=== PATIENT | male | born 1960 | race Caucasian/White ===

== ENCOUNTER 2019-01-05 17:44 | Emergency (ER) | payer MEDICAID ==
[~2019-01-05] VITALS: Ht 167.6 cm; Wt 65.9 kg
[~2019-01-05 17:44] MED LIST: HYDR-3965 PO; PENI500T2 PO
[2019-01-05] MEDS ORDERED: metroNIDAZOLE 500mg tablet PO ONE (18:50)
[2019-01-05] MEDS ORDERED: CefTRIAXone 250MG IM Kit w/LIDOcaine IM ONE (18:50)
[2019-01-05] MEDS ORDERED: azithromycin 250mg tablet PO ONE (18:50)
[2019-01-05 19:14] LABS: BASOPHILS # (AUTO) 0.1 X10'3 (0-0.2); BASOPHILS % (AUTO) 0.5 % (0-1); EOSINOPHILS # (AUTO) 0.1 X10'3 (0-0.9); EOSINOPHILS % (AUTO) 0.4 % (0-6); HEMATOCRIT 33.9 % (42.0-52.0); HEMOGLOBIN 11.5 g/dl (14.0-17.9); LYMPHOCYTES # (AUTO) 1.8 X10'3 (1.1-4.8); LYMPHOCYTES % (AUTO) 7.6 % (21-51); MEAN CORPUSCULAR HEMOGLOBIN 31.4 PG (27.0-31.0); MEAN CORPUSCULAR HGB CONC 33.8 g/dL (33.0-36.5); MEAN PLATELET VOLUME 6.6 FL (7.4-10.4); MONOCYTES # (AUTO) 1.3 X10'3 (0-0.9); MONOCYTES % (AUTO) 5.4 % (2-12); NEUTROPHILS % (AUTO) 86.1 % (42-75); PLATELET COUNT 346 X10'3 (140-440); RED BLOOD COUNT 3.65 X10'6 (4.70-6.10); WHITE BLOOD COUNT 23.3 X10'3 (4.5-11.0)
[2019-01-05] MEDS ORDERED: normal saline 1000ML IV soln IV ONE (19:30)
[2019-01-05 19:31] LABS: ALANINE AMINOTRANSFERASE 51 U/L (12-78); ALBUMIN 2.6 G/DL (3.4-5.0); ALBUMIN/GLOBULIN RATIO 0.6 (1.1-1.5); ALKALINE PHOSPHATASE 142 IU/L (46-116); ANION GAP 7 (8-16); ASPARTATE AMINO TRANSFERASE 30 U/L (10-37); BILIRUBIN,TOTAL 0.4 MG/DL (0.1-1.0); BLOOD UREA NITROGEN 15 MG/DL (7-18); BUN/CREATININE RATIO 17.6 (5.4-32.0); CALCIUM 8.4 MG/DL (8.5-10.1); CHLORIDE 98 MMOL/L (99-107); CREATININE 0.85 MG/DL (0.60-1.10); GLUCOSE 161 MG/DL (70-104); SODIUM 133 MMOL/L (135-145); TOTAL CARBON DIOXIDE 27.6 MMOL/L (24-32); TOTAL PROTEIN 7.3 G/DL (6.4-8.2); eGFR > 90 ML/MIN
[2019-01-05 19:48] LABS: CLARITY,URINE CLOUDY (Clear); COLOR,URINE YELLOW (Yellow); GLUCOSE, URINE NEGATIVE (Neg); KETONES,URINE TRACE mg/dl (Neg); LEUKOCYTE ESTERASE ,URINE LARGE (Neg); NITRITES, URINE NEGATIVE (Neg); OCCULT BLOOD,URINE LARGE (Neg); PROTEIN,URINE 30 mg/dl (Neg)
[2019-01-05 19:50] LABS: UA COLLECTION TYPE NON-SPECIFIED
[2019-01-05 19:53] LABS: RBC,URINE 0-2 /HPF (0-2); WBC,URINE 50-100 /HPF (0-4)
[2019-01-05 19:54] LABS: BACTERIA,URINE NONE SEEN /HPF (Neg); MUCUS STRANDS NONE SEEN /LPF (Neg); SQUAMOUS EPITHELIAL CELL,UR NONE SEEN /LPF (FEW); TRANSITIONAL EPI CELLS,URINE FEW /HPF
[2019-01-05] MEDS ORDERED: DOXY-243 PO (20:59)
[2019-01-05 21:37] VITALS: BP 104/58
== END 2019-01-05 21:38 | disposition home or self-care (01) ==
LOC: ER 17:45
DX: N45.1 Epididymitis (principal); A64 Unspecified sexually transmitted disease; F12.90 Cannabis use, unspecified, uncomplicated; F17.200 Nicotine dependence, unspecified, uncomplicated; Z79.899 Other long term (current) drug therapy
CPT/HCPCS: 36415; 76870; 80053; 81001; 83605; 84145; 85025; 87040; 87088; 87491; 87591; 96372; 99284; J0696; J7030; J7040; J3490

== ENCOUNTER 2021-09-11 18:16 | Emergency (ER) | payer MEDICAID | END 2021-09-11 19:02 | disposition left against medical advice (07) | LOC: ER 18:17 | DX: R22.1 Localized swelling, mass and lump, neck (principal); Z53.21 Procedure and treatment not carried out due to patient leaving prior to being seen by health care provider ==

== ENCOUNTER 2021-09-17 20:23 | Emergency (ER) | payer MEDICAID ==
[~2021-09-17] VITALS: Ht 167.6 cm; Wt 62.3 kg
[2021-09-17 20:54] VITALS: BP 122/82
[2021-09-17 21:57] LABS: EOSINOPHILS # (AUTO) 0.1 X10'3 (0-0.9); MEAN PLATELET VOLUME 6.5 FL (7.4-10.4); RED CELL DISTRIBUTION WIDTH 12.6 % (11.5-14.5)
[2021-09-17 21:58] LABS: BASOPHILS # (AUTO) 0.1 X10'3 (0-0.2); BASOPHILS % (AUTO) 0.9 % (0-1); EOSINOPHILS % (AUTO) 0.9 % (0-6); HEMATOCRIT 37.8 % (42.0-52.0); HEMOGLOBIN 13.1 g/dl (14.0-17.9); LYMPHOCYTES # (AUTO) 1.4 X10'3 (1.1-4.8); LYMPHOCYTES % (AUTO) 11.8 % (21-51); MEAN CORPUSCULAR HEMOGLOBIN 30.3 PG (27.0-31.0); MEAN CORPUSCULAR HGB CONC 34.5 g/dL (33.0-36.5); MEAN CORPUSCULAR VOLUME 87.7 FL (78-98); MONOCYTES # (AUTO) 1.2 X10'3 (0-0.9); MONOCYTES % (AUTO) 10.6 % (2-12); NEUTROPHILS # (AUTO) 8.8 X10'3 (1.8-7.7); NEUTROPHILS % (AUTO) 75.8 % (42-75); PLATELET COUNT 508 X10'3 (140-440); RED BLOOD COUNT 4.32 X10'6 (4.70-6.10); WHITE BLOOD COUNT 11.6 X10'3 (4.5-11.0)
[2021-09-17 22:02] LABS: D-DIMER 1.36 MG/L FEU (0-0.50)
[2021-09-17 22:20] LABS: ALANINE AMINOTRANSFERASE 44 U/L (12-78); ALBUMIN 3.1 G/DL (3.4-5.0); ALBUMIN/GLOBULIN RATIO 0.6 (1.1-1.5); ALKALINE PHOSPHATASE 154 IU/L (46-116); ANION GAP 6 (8-16); ASPARTATE AMINO TRANSFERASE 35 U/L (10-37); BILIRUBIN,TOTAL 0.5 MG/DL (0.1-1.0); BLOOD UREA NITROGEN 19 MG/DL (7-18); C-REACTIVE PROTEIN 3.86 MG/DL (0.0-0.5); CHLORIDE 97 MMOL/L (99-107); CREATININE 0.76 MG/DL (0.60-1.10); GLUCOSE 145 MG/DL (70-104); MAGNESIUM 2.1 MG/DL (1.5-2.4); POTASSIUM 4.3 MMOL/L (3.5-5.1); SODIUM 134 MMOL/L (135-145); TOTAL CARBON DIOXIDE 30.7 MMOL/L (24-32); TOTAL PROTEIN 7.9 G/DL (6.4-8.2); eGFR > 90 ML/MIN
--- NOTE | 2021-09-18 02:00 | NUR ---
NOT IN LOBBY
== END 2021-09-18 02:31 | disposition left against medical advice (07) ==
LOC: ER 20:25
DX: R22.0 Localized swelling, mass and lump, head (principal); F12.90 Cannabis use, unspecified, uncomplicated; Z79.899 Other long term (current) drug therapy
CPT/HCPCS: 36415; 80053; 83605; 83735; 84145; 85025; 85379; 85651; 86140; 87040

== ENCOUNTER 2022-04-16 06:02 | Inpatient (IN) | payer MEDICAID ==
[~2022-04-16] VITALS: Ht 167.6 cm; Wt 69.0 kg
[2022-04-16 08:17] LABS: URINE AMPHETAMINE SCREEN NEGATIVE (Neg); URINE BARBITUATE SCREEN NEGATIVE (Neg); URINE BENZODIAZEPINES SCREEN NEGATIVE (Neg); URINE CANNABINOID SCREEN NEGATIVE (Neg); URINE COCAINE SCREEN NEGATIVE (Neg); URINE METHADONE SCREEN NEGATIVE (Neg); URINE OPIATE SCREEN NEGATIVE (Neg); URINE PHENCYCLIDINE SCREEN NEGATIVE (Neg)
[2022-04-16 08:19] LABS: BASOPHILS % (AUTO) 0.4 % (0-1); EOSINOPHILS % (AUTO) 0.1 % (0-6); HEMATOCRIT 34.5 % (42.0-52.0); HEMOGLOBIN 11.6 g/dl (14.0-17.9); LYMPHOCYTES # (AUTO) 0.9 X10'3 (1.1-4.8); LYMPHOCYTES % (AUTO) 9.4 % (21-51); MEAN CORPUSCULAR HEMOGLOBIN 28.8 PG (27.0-31.0); MEAN CORPUSCULAR HGB CONC 33.7 g/dL (33.0-36.5); MEAN CORPUSCULAR VOLUME 85.4 FL (78-98); MEAN PLATELET VOLUME 7.1 FL (7.4-10.4); MONOCYTES # (AUTO) 0.8 X10'3 (0-0.9); MONOCYTES % (AUTO) 8.7 % (2-12); NEUTROPHILS # (AUTO) 7.6 X10'3 (1.8-7.7); NEUTROPHILS % (AUTO) 81.4 % (42-75); PLATELET COUNT 198 X10'3 (140-440); RED BLOOD COUNT 4.03 X10'6 (4.70-6.10); WHITE BLOOD COUNT 9.3 X10'3 (4.5-11.0)
--- NOTE | 2022-04-16 08:20 | NUR ---
I have reviewed and agree with all interventions, assessments performed and documented by FREDERICK Angela.
[2022-04-16 08:28] LABS: ALANINE AMINOTRANSFERASE 23 U/L (12-78); ALBUMIN/GLOBULIN RATIO 0.7 (1.1-1.5); ALKALINE PHOSPHATASE 128 IU/L (46-116); ANION GAP 8 (8-16); ASPARTATE AMINO TRANSFERASE 54 U/L (10-37); BILIRUBIN,TOTAL 1.3 MG/DL (0.1-1.0); BLOOD UREA NITROGEN 34 MG/DL (7-18); BUN/CREATININE RATIO 33.3 (5.4-32.0); CALCIUM 8.9 MG/DL (8.5-10.1); CHLORIDE 98 MMOL/L (99-107); CREATININE 1.02 MG/DL (0.60-1.10); GLUCOSE 140 MG/DL (70-104); POTASSIUM 3.7 MMOL/L (3.5-5.1); SODIUM 134 MMOL/L (135-145); TOTAL CARBON DIOXIDE 28.4 MMOL/L (24-32); TOTAL PROTEIN 4.9 G/DL (6.4-8.2); eGFR 74 ML/MIN
[2022-04-16 08:32] LABS: CLARITY,URINE CLEAR (Clear); COLOR,URINE YELLOW (Yellow); GLUCOSE, URINE NEGATIVE (Neg); KETONES,URINE TRACE mg/dl (Neg); LEUKOCYTE ESTERASE ,URINE NEGATIVE (Neg); NITRITES, URINE NEGATIVE (Neg); OCCULT BLOOD,URINE MODERATE (Neg); PROTEIN,URINE NEGATIVE (Neg); UROBILINOGEN,URINE 0.2 E.U/dL (0.2-1.0)
--- NOTE | 2022-04-16 08:34 | NUR ---
Patient requesting drug rehab for fentynol addiction, currently living out of his car. Patient arrived via EMS. Patients car is at his cousins house.
[2022-04-16 08:37] LABS: UA COLLECTION TYPE CLN CATCH MIDSTREAM
[2022-04-16 08:38] LABS: MAGNESIUM 2.3 MG/DL (1.5-2.4)
[2022-04-16 08:40] LABS: BACTERIA,URINE 2+ /HPF (Neg); HYALINE CASTS 0-3 /LPF (NEGATIVE); SQUAMOUS EPITHELIAL CELL,UR FEW /LPF (FEW)
[2022-04-16] MEDS ORDERED: multivitamins, therapeutics tablet PO ONE (08:55)
[2022-04-16] MEDS ORDERED: thiamine 100mg/ml 2ml inj. IV ONE (08:55)
[2022-04-16] MEDS ORDERED: normal saline 1000ml 1,000 ML IV ONE (08:55)
[2022-04-16] MEDS ORDERED: iohexol 300mg/ml 100ml inj. ONE (09:10)
--- NOTE | 2022-04-16 09:46 | NUR ---
Met with patient in regards to substance use and to see if patient was interested in resources for treatment options. Patient is interested in medication to help him with addiction. I helped patient make an appt at [facility]. His appt is 04/17/22 at 6:00am. Patient has my card to call me with any questions.
[2022-04-16] MEDS ORDERED: potassium Cl 20 mEq SR tablet PO PRN (12:05)
[2022-04-16] MEDS ORDERED: magnesium 4gm in 100ml NS 100 ML IV PRN (12:05)
[2022-04-16] MEDS ORDERED: potassium Cl 40MEQ/1/2NS 520ml 520 ML IV PRN (12:05)
[2022-04-16] MEDS ORDERED: morphine 2 MG/ML inj. syringe IV PRN (12:05)
[2022-04-16] MEDS ORDERED: magnesium Cl slow-release 64mg tablet PO PRN (12:05)
--- NOTE | 2022-04-16 12:30 | NUR ---
PAGE SENT TO DR GALVAN REGARDING HR 124, BP 83/51.
[2022-04-16] MEDS ORDERED: PERFLUTREN PROTEIN-A MICROSPHR (Optison) 0.22 MG/ML 3ML VIAL IV ONE (12:50)
--- NOTE | 2022-04-16 13:38 | NUR ---
helpdesk technician at bedside at this time.
[2022-04-16] MEDS ORDERED: normal saline 250ml IV soln 250 ML IV ONE (13:40)
[2022-04-16 14:15] VITALS: BP 103/72
[2022-04-16] MEDS ORDERED: NO HOME MEDS (14:28)
[2022-04-16 18:00] VITALS: BP 109/69
--- NOTE | 2022-04-16 18:03 | NUR ---
PAGE SENT PAGER ID: [phone] MESSAGE: [id number], MARY YUNG, PT IS BEGINNING WITHDRAWLS FROM [place]. PT ASKING FOR RELIEF, ALL HE HAS IS MORPHINE 1MG IV Q 4 HR. THANK YOU, KARISSA [id number]
--- NOTE | 2022-04-16 18:22 | NUR ---
Problems reprioritized. Patient report given, questions answered & plan of care reviewed with SARAH, RN.
[2022-04-16] MEDS: morphine 2 MG/ML inj. syringe IV PRN ×2 (18:49→22:02)
[2022-04-16] MEDS: ondansetron/PF 4mg/2ml inj IV PRN (18:49)
[2022-04-16] MEDS: K and/or MAG REPLACEMENT MC SCH (20:00)
[2022-04-16 22:00] VITALS: BP 109/64
[2022-04-16] MEDS: CefTRIAXone 2gm/D5W 50ml BAG 50 ML IV SCH (22:02)
[2022-04-16] MEDS: acetaminophen 325mg tablet PO PRN (23:32)
[2022-04-17] VITALS (11 sets, daily range): BP systolic 85–109; BP diastolic 49–78
[2022-04-17] MEDS: ondansetron/PF 4mg/2ml inj IV PRN ×3 (01:07→19:17)
[2022-04-17] MEDS: morphine 2 MG/ML inj. syringe IV PRN ×7 (01:08→23:57)
--- NOTE | 2022-04-17 05:00 | NUR ---
Pt. is awake alert oriented requesting pain med every 3 hours for abdominal and generalized discomfort. Pt. c/o frequent stool and inability to eat due to frequent stools after eating. Pt. is ST on the monitor. IV in right arm now intact. Takes po fluids sips at a time. Had BM x3 tonight dark tarry stool small amt. Voids per urinal mod amt siddhartha clear. Plan for Rehab when medically cleared.
--- NOTE | 2022-04-17 06:33 | NUR ---
Patient in room PCU 3012. I have received report from SARAH, RN, and had the opportunity to ask questions and assume patient care. PT RESTING COMFORTABLLY, NO S/S OF DISTRESS. WILL CONTINUE TO MONITOR.
[2022-04-17 07:04] LABS: BASOPHILS % (AUTO) 0.4 % (0-1); EOSINOPHILS # (AUTO) 0.1 X10'3 (0-0.9); EOSINOPHILS % (AUTO) 0.8 % (0-6); HEMATOCRIT 33.1 % (42.0-52.0); HEMOGLOBIN 11.1 g/dl (14.0-17.9); LYMPHOCYTES # (AUTO) 0.8 X10'3 (1.1-4.8); LYMPHOCYTES % (AUTO) 8.9 % (21-51); MEAN CORPUSCULAR HEMOGLOBIN 29.5 PG (27.0-31.0); MEAN CORPUSCULAR HGB CONC 33.5 g/dL (33.0-36.5); MEAN PLATELET VOLUME 7.6 FL (7.4-10.4); MONOCYTES # (AUTO) 0.9 X10'3 (0-0.9); MONOCYTES % (AUTO) 10.2 % (2-12); NEUTROPHILS # (AUTO) 7.2 X10'3 (1.8-7.7); NEUTROPHILS % (AUTO) 79.7 % (42-75); PLATELET COUNT 187 X10'3 (140-440); RED BLOOD COUNT 3.76 X10'6 (4.70-6.10); RED CELL DISTRIBUTION WIDTH 17.2 % (11.5-14.5)
[2022-04-17 07:12] LABS: ALBUMIN 1.8 G/DL (3.4-5.0); ANION GAP 7 (8-16); BLOOD UREA NITROGEN 31 MG/DL (7-18); BUN/CREATININE RATIO 31.3 (5.4-32.0); CALCIUM 9.2 MG/DL (8.5-10.1); CHLORIDE 100 MMOL/L (99-107); CREATININE 0.99 MG/DL (0.60-1.10); GLUCOSE 97 MG/DL (70-104); POTASSIUM 3.4 MMOL/L (3.5-5.1); SODIUM 133 MMOL/L (135-145); TOTAL CARBON DIOXIDE 26.1 MMOL/L (24-32); eGFR 76 ML/MIN
[2022-04-17] MEDS: CefTRIAXone 2gm/D5W 50ml BAG 50 ML IV SCH (07:19)
[2022-04-17] MEDS: K and/or MAG REPLACEMENT MC SCH ×2 (08:00→18:43)
[2022-04-17] MEDS: azithromycin/NS 500mg/250ml 250 ML IV SCH (08:32)
[2022-04-17 11:14] LABS: BFSOURCE RIGHT PLEURAL FLD; PLEURAL FLUID PH 7.537 (7.63-7.65)
[2022-04-17 11:49] LABS: GLUCOSE,BODY FLUID 108 MG/DL; LDH,BODY FLUID 138 U/L
[2022-04-17 12:02] LABS: TOTAL PROTEIN,BODY FLUID < 2.0 G/DL
[2022-04-17] MEDS: potassium Cl 20 mEq SR tablet PO PRN ×2 (12:32→17:44)
[2022-04-17 12:40] LABS: BFAPPEAR CLOUDY; LYMPHOCYTES,BODY FLUID 82 %; MONOCYTES,BODY FLUID 10 %; NEUTROPHILS,BODY FLUID 8 %
[2022-04-17 12:51] LABS: BF MESOTHELIAL CELLS MODERATE; BF RBC COUNT 5150 /CU MM; BF WBC COUNT 605 /CU MM (0-1000); BFCOLOR AMBER; BFVOLUME 60 ML
--- NOTE | 2022-04-17 12:51 | NUR ---
PAGE SENT PAGER ID: [phone] MESSAGE: [id number], MARY YUNG, PT'S ORTHOSTATIC BP - BP DROPS FROM 102/70 SUPINE TO 85/53 STANDING NO QUITE 20. THANK YOU, KARISSA Taylor 0420
[2022-04-17] MEDS: normal saline 1000ml 1,000 ML IV SCH ×2 (12:55→22:55)
--- NOTE | 2022-04-17 14:53 | NUR ---
PRESSURE ULCER EDUCATION: DEFINITION: A pressure ulcer is an area of skin that breaks down when you stay in one position too long. The constant pressure against the skin reduces the blood flow to that area and the affected tissue dies. CAUSES: "Being bedridden or in a wheelchair "Fragile skin "Having a chronic condition, such as diabetes or vascular disease "Inability to move certain parts of your body without assistance "Older age "Incontinence of urine or stool SYMPTOMS: "A reddened area that DOES NOT turn white when pressed on - this can be the beginning of a pressure ulcer "A blister, deep sore or a crater - these can be advanced pressure ulcers FIRST AID: "Relieve the pressure on this area "Keep the area clean and dry "Call your primary doctor if you see any of the above symptoms "DO NOT massage the area "DO NOT use a donut shaped or ring shaped pillow- these actually interfere with the blood flow and cause complications PREVENTION: "Check for pressure ulcers everyday "Change position at least every two hours to relieve pressure "Use items that help relieve pressure- pillows, sheepskin, foam padding, and powders. "Keep skin clean and dry "Eat healthy well balanced meals "Exercise daily IF YOU SEE ANY OF THESE SYMPTOMS WHILE IN THE HOSPITAL - TELL YOUR NURSE IMMEDIATELY. IF YOU SEE ANY OF THESE SYMPTOMS WHILE AT HOME OR HAVE ANY QUESTIONS OR CONCERNS ABOUT PRESSURE ULCERS - CALL YOUR PRIMARY DOCTOR IMMEDIATELY. Addendum: 04/17/22 at 1454 by Daisy Akbar LVN Amended: Links added.
--- NOTE | 2022-04-17 18:20 | NUR ---
Problems reprioritized. Patient report given, questions answered & plan of care reviewed with SARAH, RN.
[2022-04-17] MEDS: acetaminophen 325mg tablet PO PRN (19:17)
--- NOTE | 2022-04-18 00:20 | NUR ---
Pt. is awake alert oriented c/o severe abd pain requesting pain relief. Unable to wait for 3 hours. medicated with zofran as needed. IV in left arm infusing well. Pt. able to state events of the day, biopsy and drained the left lung. Voids per urinal dark siddhartha clear mod amt. Small amt of dark brown stool incontinence. Plan for CT of abd and lungs consult senior safety support manager for home placement.
[2022-04-18] MEDS: morphine 2 MG/ML inj. syringe IV PRN ×7 (02:36→21:46)
[2022-04-18] MEDS: ondansetron/PF 4mg/2ml inj IV PRN ×2 (02:36→18:47)
[2022-04-18 03:02] VITALS: BP 107/80
[2022-04-18 06:31] LABS: BASOPHILS # (AUTO) 0.1 X10'3 (0-0.2); BASOPHILS % (AUTO) 0.8 % (0-1); EOSINOPHILS # (AUTO) 0.1 X10'3 (0-0.9); EOSINOPHILS % (AUTO) 1.2 % (0-6); HEMATOCRIT 33.4 % (42.0-52.0); HEMOGLOBIN 11.4 g/dl (14.0-17.9); LYMPHOCYTES # (AUTO) 0.8 X10'3 (1.1-4.8); LYMPHOCYTES % (AUTO) 10.6 % (21-51); MEAN CORPUSCULAR HEMOGLOBIN 29.8 PG (27.0-31.0); MEAN CORPUSCULAR HGB CONC 34.1 g/dL (33.0-36.5); MEAN CORPUSCULAR VOLUME 87.4 FL (78-98); MEAN PLATELET VOLUME 7.3 FL (7.4-10.4); MONOCYTES # (AUTO) 0.7 X10'3 (0-0.9); MONOCYTES % (AUTO) 9.7 % (2-12); NEUTROPHILS % (AUTO) 77.7 % (42-75); PLATELET COUNT 173 X10'3 (140-440); RED BLOOD COUNT 3.83 X10'6 (4.70-6.10); RED CELL DISTRIBUTION WIDTH 17.4 % (11.5-14.5); WHITE BLOOD COUNT 7.7 X10'3 (4.5-11.0)
[2022-04-18 06:32] LABS: ALBUMIN 1.7 G/DL (3.4-5.0); ANION GAP 7 (8-16); BLOOD UREA NITROGEN 31 MG/DL (7-18); BUN/CREATININE RATIO 31.3 (5.4-32.0); CALCIUM 8.7 MG/DL (8.5-10.1); CHLORIDE 101 MMOL/L (99-107); CREATININE 0.99 MG/DL (0.60-1.10); GLUCOSE 105 MG/DL (70-104); POTASSIUM 3.9 MMOL/L (3.5-5.1); SODIUM 133 MMOL/L (135-145); TOTAL CARBON DIOXIDE 25.1 MMOL/L (24-32); eGFR 76 ML/MIN
--- NOTE | 2022-04-18 06:37 | NUR ---
Patient in room PCU 3012. I have received report from SARAH RN, and had the opportunity to ask questions and assume patient care.
[2022-04-18] MEDS: CefTRIAXone 2gm/D5W 50ml BAG 50 ML IV SCH (07:31)
[2022-04-18] MEDS: K and/or MAG REPLACEMENT MC SCH ×2 (08:00→18:31)
[2022-04-18] MEDS: normal saline 1000ml 1,000 ML IV SCH ×2 (08:55→18:47)
[2022-04-18] MEDS: azithromycin/NS 500mg/250ml 250 ML IV SCH (09:22)
[2022-04-18 11:45] VITALS: BP 108/75
--- NOTE | 2022-04-18 15:21 | NUR ---
PAGE SENT PAGER ID: [phone] MESSAGE: [id number], MARY YUNG, CRITICAL LAB, MRSA POSITIVE. THANK YOU, KARISSA Taylor [id number]
[2022-04-18 15:42] VITALS: BP 114/84
--- NOTE | 2022-04-18 17:19 | NUR ---
PT REFUSED ORTHOSTATIC VS AND DAILY WEIGHT. PT DIDN'T WANT TO GET OUT OF BED. PT RELUCTANT TO DO BASIC TASKS FOR HIMSELF, SUCH REPORT SOILED BEDDING OR PUT SUGAR IN HIS TEA.
[2022-04-18 18:00] VITALS: BP 110/75
--- NOTE | 2022-04-18 18:17 | NUR ---
Problems reprioritized. Patient report given, questions answered & plan of care reviewed with SARAH, RN.
--- NOTE | 2022-04-18 18:18 | NUR ---
Problems reprioritized. Patient report given, questions answered & plan of care reviewed with SARAH, RN.
[2022-04-18 22:04] VITALS: BP 115/73
--- NOTE | 2022-04-19 00:15 | NUR ---
Pt. is awake alert oriented able to answer simple questions. Pt. c/o weakness incapacity; inability to help in self care stating this has never happened before. No c/o Chest pain. Pt. is incontinent of stool drk green pasty. C/o arm and abd pain requesting meds every 2-3 hours. Tolerating po fluids, voids per urinal independently yellow clear small amts. IV in left arm intact NS infusing. Plan Anticipate antidiarrheals vs. GI consult.
[2022-04-19] MEDS: morphine 2 MG/ML inj. syringe IV PRN ×9 (00:41→23:49)
[2022-04-19] MEDS: ondansetron/PF 4mg/2ml inj IV PRN (01:01)
[2022-04-19 02:21] VITALS: BP 103/70
[2022-04-19] MEDS: normal saline 1000ml 1,000 ML IV SCH ×2 (05:11→14:55)
[2022-04-19 06:43] LABS: BASOPHILS % (AUTO) 0.7 % (0-1); EOSINOPHILS # (AUTO) 0.1 X10'3 (0-0.9); EOSINOPHILS % (AUTO) 1.5 % (0-6); HEMATOCRIT 33.9 % (42.0-52.0); HEMOGLOBIN 11.5 g/dl (14.0-17.9); LYMPHOCYTES # (AUTO) 0.9 X10'3 (1.1-4.8); LYMPHOCYTES % (AUTO) 11.8 % (21-51); MEAN CORPUSCULAR HEMOGLOBIN 30.3 PG (27.0-31.0); MEAN CORPUSCULAR HGB CONC 33.8 g/dL (33.0-36.5); MEAN CORPUSCULAR VOLUME 89.7 FL (78-98); MEAN PLATELET VOLUME 7.2 FL (7.4-10.4); MONOCYTES # (AUTO) 0.7 X10'3 (0-0.9); MONOCYTES % (AUTO) 9.9 % (2-12); NEUTROPHILS # (AUTO) 5.7 X10'3 (1.8-7.7); NEUTROPHILS % (AUTO) 76.1 % (42-75); PLATELET COUNT 163 X10'3 (140-440); RED BLOOD COUNT 3.78 X10'6 (4.70-6.10); RED CELL DISTRIBUTION WIDTH 18.3 % (11.5-14.5); WHITE BLOOD COUNT 7.5 X10'3 (4.5-11.0)
[2022-04-19 07:00] VITALS: BP 92/64
[2022-04-19 07:06] LABS: ALBUMIN 1.6 G/DL (3.4-5.0); ANION GAP 7 (8-16); BLOOD UREA NITROGEN 27 MG/DL (7-18); CALCIUM 8.8 MG/DL (8.5-10.1); CHLORIDE 102 MMOL/L (99-107); CREATININE 0.87 MG/DL (0.60-1.10); GLUCOSE 118 MG/DL (70-104); POTASSIUM 3.9 MMOL/L (3.5-5.1); SODIUM 132 MMOL/L (135-145); TOTAL CARBON DIOXIDE 23.5 MMOL/L (24-32); eGFR 89 ML/MIN
[2022-04-19] MEDS: K and/or MAG REPLACEMENT MC SCH ×2 (08:00→19:47)
[2022-04-19] MEDS: azithromycin/NS 500mg/250ml 250 ML IV SCH (08:55)
[2022-04-19] MEDS: CefTRIAXone 2gm/D5W 50ml BAG 50 ML IV SCH (08:55)
[2022-04-19 11:47] VITALS: BP 93/61
[2022-04-19 15:48] VITALS: BP 100/62
[2022-04-19 18:00] VITALS: BP 92/59
[2022-04-19 23:30] VITALS: BP 108/79
[2022-04-20] MEDS: normal saline 1000ml 1,000 ML IV SCH ×3 (00:55→20:55)
[2022-04-20 02:00] VITALS: BP 112/75
[2022-04-20] MEDS: morphine 2 MG/ML inj. syringe IV PRN ×8 (02:05→23:57)
[2022-04-20] MEDS ORDERED: morphine 4 MG/ML inj SYRINge IV ONE (04:20)
[2022-04-20] MEDS: ondansetron/PF 4mg/2ml inj IV PRN (04:22)
[2022-04-20 06:33] LABS: BASOPHILS # (AUTO) 0.1 X10'3 (0-0.2); EOSINOPHILS # (AUTO) 0.1 X10'3 (0-0.9); EOSINOPHILS % (AUTO) 0.6 % (0-6); HEMATOCRIT 35.3 % (42.0-52.0); HEMOGLOBIN 12.2 g/dl (14.0-17.9); LYMPHOCYTES % (AUTO) 9.5 % (21-51); MEAN CORPUSCULAR HEMOGLOBIN 30.3 PG (27.0-31.0); MEAN CORPUSCULAR HGB CONC 34.5 g/dL (33.0-36.5); MEAN CORPUSCULAR VOLUME 87.9 FL (78-98); MEAN PLATELET VOLUME 7.3 FL (7.4-10.4); MONOCYTES # (AUTO) 0.9 X10'3 (0-0.9); MONOCYTES % (AUTO) 9.3 % (2-12); NEUTROPHILS # (AUTO) 8.2 X10'3 (1.8-7.7); NEUTROPHILS % (AUTO) 79.6 % (42-75); PLATELET COUNT 176 X10'3 (140-440); RED BLOOD COUNT 4.01 X10'6 (4.70-6.10); RED CELL DISTRIBUTION WIDTH 18.2 % (11.5-14.5); WHITE BLOOD COUNT 10.2 X10'3 (4.5-11.0)
[2022-04-20 06:49] LABS: ALBUMIN 1.6 G/DL (3.4-5.0); ANION GAP 7 (8-16); BLOOD UREA NITROGEN 25 MG/DL (7-18); BUN/CREATININE RATIO 29.1 (5.4-32.0); CALCIUM 8.8 MG/DL (8.5-10.1); CHLORIDE 102 MMOL/L (99-107); CREATININE 0.86 MG/DL (0.60-1.10); GLUCOSE 127 MG/DL (70-104); POTASSIUM 3.9 MMOL/L (3.5-5.1); SODIUM 132 MMOL/L (135-145); TOTAL CARBON DIOXIDE 22.6 MMOL/L (24-32); eGFR 90 ML/MIN
[2022-04-20 07:00] VITALS: BP 95/61
[2022-04-20] MEDS: CefTRIAXone 2gm/D5W 50ml BAG 50 ML IV SCH (07:56)
[2022-04-20] MEDS: azithromycin 250mg tablet PO SCH (07:56)
[2022-04-20] MEDS: K and/or MAG REPLACEMENT MC SCH ×2 (08:00→19:01)
--- NOTE | 2022-04-20 08:34 | NUR ---
PAGER ID: [phone] MESSAGE: KAYLEN ON [phone], PATHOLOGY REPORT NOT AVAILABLE YET PER [facility] FOR 3012C. POSSIBLY 04/21/22
[2022-04-20 11:19] VITALS: BP 92/63
--- NOTE | 2022-04-20 12:01 | NUR ---
Malnutrition Consult: Pt admit DX hyponatremia, R pleural effusion, lymphadenopathy, probable PNA, hepatosplenomegaly, suspicion for lung CA pending biopsy results, and orthostatic hypotension per EMR. Pt s/p R thoracentesis -750ml 04/17 per EMR. Noted current bed scaled wt +5.6kg from initial standing scaled wt w/ +1.7L fluid balance; likely error and initial 63.2kg wt more accurate. Pt PO ~39% avg initial heart healthy meals not meeting needs. Pt seen by SKYE at bedside; pt reports decreased appetite and poor food resources past 2-3 months since becoming homeless. Per pt, UBW 155 pounds 2-3 months prior w/ first standing scaled wt this admit 139 pounds; ~10% UBW loss severe. Pt w/ general 4+/L hand 3+ edemas though L deltoid/upper arm visible severe muscle/fat wasting evident and mild temporal wasting. Given visible wasting and wt loss meets severe malnutrition criteria; notified. MD agreeable to liberalize to regular diet today given poor nutrition status. Pt is agreeable to strawberry/vanilla Ensure Plus High Protein TIDWM; MD notified. LBM 04/19. Will monitor for further nutrition intervention needs this admit. Rec: 1. continue regular diet; encourage PO 2. vanilla/strawberry Ensure Plus High Protein TIDWM; pending physician verification in EMR 3. routine bowel care 4. weekly wts Addendum: 04/20/22 at [address] Amended: Links added.
[2022-04-20] MEDS: LACTOSE-REDUCED FOOD 237ML LIQUID PO SCH ×2 (13:00→18:00)
[2022-04-20 15:31] VITALS: BP 100/66
[2022-04-20 22:00] VITALS: BP 98/63
[2022-04-21] VITALS (7 sets, daily range): BP systolic 81–116; BP diastolic 56–80
[2022-04-21] MEDS: morphine 2 MG/ML inj. syringe IV PRN ×4 (03:17→14:05)
[2022-04-21] MEDS: normal saline 1000ml 1,000 ML IV SCH (05:39)
[2022-04-21] MEDS: LACTOSE-REDUCED FOOD 237ML LIQUID PO SCH ×3 (08:00→18:31)
[2022-04-21] MEDS: K and/or MAG REPLACEMENT MC SCH ×2 (08:00→20:00)
[2022-04-21] MEDS: CefTRIAXone 2gm/D5W 50ml BAG 50 ML IV SCH (09:00)
[2022-04-21] MEDS: azithromycin 250mg tablet PO SCH (09:00)
--- NOTE | 2022-04-21 12:21 | NUR ---
PAGER ID: [phone] MESSAGE: Gurjit [phone], Pt has been desating more today. Was on 4L NC now with mask on at 10L still satting at 82-85. Lungs sound clear and diminished. Maybe we need an X-ray or check for PE's. Nikolas [phone]
[2022-04-21] MEDS ORDERED: furosemide 40mg/4ml inj IV ONE (12:40)
--- NOTE | 2022-04-21 12:58 | NUR ---
PAGER ID: [phone] MESSAGE: KAYLEN ON [phone], WE CALLED A RAPID ON 3012C, ABG IS DRAWN BUT PENDING RESULTS NOW. CAN YOU COME BACK TO PATIENTS ROOM PLEASE, THANK YOU
[2022-04-21 12:59] LABS: ABG BASE EXCESS -3.9 mmol/L (-2.0-2.0); ABG HCO3 20.7 mmol/L (22.0-26.0); ABG OXYGEN SATURATION 85.4 % (94-97); ABG PCO2 (T) 35.2 mmHg (35.0-48.0); ABG PO2 (T) 50.7 mmHg (75.0-100.0); ALLEN'S TEST POSITIVE; FLOW 15 L/min; FMetHb 0.4 % (0.0-1.5); FO2Hb 84.2 % (94-97); PATIENT TEMPERATURE 36.3; TOTAL HEMOGLOBIN 14.3 G/dl (14.0-17.9)
[2022-04-21] MEDS: heparin, porcine 5000 units/ml vial SQ SCH ×2 (13:05→20:12)
[2022-04-21 13:07] LABS: BASOPHILS # (AUTO) 0.1 X10'3 (0-0.2); BASOPHILS % (AUTO) 0.5 % (0-1); EOSINOPHILS # (AUTO) 0.1 X10'3 (0-0.9); EOSINOPHILS % (AUTO) 0.4 % (0-6); HEMATOCRIT 42.3 % (42.0-52.0); HEMOGLOBIN 13.7 g/dl (14.0-17.9); LYMPHOCYTES # (AUTO) 1.8 X10'3 (1.1-4.8); MEAN CORPUSCULAR HEMOGLOBIN 28.7 PG (27.0-31.0); MEAN CORPUSCULAR HGB CONC 32.4 g/dL (33.0-36.5); MEAN CORPUSCULAR VOLUME 88.4 FL (78-98); MEAN PLATELET VOLUME 7.6 FL (7.4-10.4); MONOCYTES # (AUTO) 1.2 X10'3 (0-0.9); MONOCYTES % (AUTO) 7.6 % (2-12); NEUTROPHILS # (AUTO) 12.9 X10'3 (1.8-7.7); NEUTROPHILS % (AUTO) 80.5 % (42-75); PLATELET COUNT 196 X10'3 (140-440); RED BLOOD COUNT 4.79 X10'6 (4.70-6.10); WHITE BLOOD COUNT 16.1 X10'3 (4.5-11.0)
[2022-04-21] MEDS ORDERED: metoprolol tartrate 12.5mg (1/2 tablet) PO SCH (13:10)
[2022-04-21 13:17] LABS: D-DIMER 2.77 MG/L FEU (0-0.50)
[2022-04-21 13:23] LABS: ALANINE AMINOTRANSFERASE 26 U/L (12-78); ALBUMIN 1.8 G/DL (3.4-5.0); ALBUMIN/GLOBULIN RATIO 0.5 (1.1-1.5); ALKALINE PHOSPHATASE 148 IU/L (46-116); ANION GAP 9 (8-16); ASPARTATE AMINO TRANSFERASE 59 U/L (10-37); BILIRUBIN,TOTAL 0.7 MG/DL (0.1-1.0); BLOOD UREA NITROGEN 27 MG/DL (7-18); CALCIUM 9.1 MG/DL (8.5-10.1); CHLORIDE 101 MMOL/L (99-107); CREATININE 0.87 MG/DL (0.60-1.10); GLUCOSE 171 MG/DL (70-104); SODIUM 132 MMOL/L (135-145); TOTAL CARBON DIOXIDE 22.4 MMOL/L (24-32); TOTAL PROTEIN 5.2 G/DL (6.4-8.2); eGFR 89 ML/MIN
--- NOTE | 2022-04-21 13:53 | NUR ---
PAGER ID: [phone] MESSAGE: Gurjit [phone], Can we get an order for morphine 1mg to help with pt's O2 hunger? RT is worried the 2mg may reduce breathing drive. Nikolas [phone]
[2022-04-21] MEDS ORDERED: levalbuterol 0.63mg/3ml nebule IH SCH (14:10)
[2022-04-21] MEDS ORDERED: iohexol 350MG/ML 100ml bottle IV ONE (14:46)
[2022-04-21 15:05] LABS: POTASSIUM 4.4 MMOL/L (3.5-5.1)
[2022-04-21 15:22] LABS: ABG BASE EXCESS -4.2 mmol/L (-2.0-2.0); ABG HCO3 20.2 mmol/L (22.0-26.0); ABG OXYGEN SATURATION 94.6 % (94-97); ABG PCO2 (T) 35.5 mmHg (35.0-48.0); ABG PO2 (T) 77.5 mmHg (75.0-100.0); ALLEN'S TEST POSITIVE; FCOHb 0.6 % (0.0-3.9); FLOW 30 L/min; FMetHb 0.4 % (0.0-1.5); FO2Hb 93.7 % (94-97); TOTAL HEMOGLOBIN 13.8 G/dl (14.0-17.9)
--- NOTE | 2022-04-21 16:40 | NUR ---
PAGER ID: [phone] MESSAGE: Gurjit [phone], pt has been running [employer] in the 170's with a BP of 135/65. I gave the metoprolol PO, can we get an IV one time push? Nikolas [phone]
--- NOTE | 2022-04-21 16:40 | NUR ---
Pt has been moved to DNR as per conversation with Dr Bryan, RT, and myself.
[2022-04-21] MEDS ORDERED: metoprolol tartrate 1mg/ml inj IV ONE (16:47)
--- NOTE | 2022-04-21 16:48 | NUR ---
Called pt's family to notify of current condition and change to DNR status. Contact ken - [phone]
[2022-04-21] MEDS ORDERED: diltiazem-NS 100mg/100ml 100 ML IV SCH (17:25)
--- NOTE | 2022-04-21 18:20 | NUR ---
Patient in room PCU 3012. I have received report from DELICIA Connor and had the opportunity to ask questions and assume patient care. Patient has been made a DNR, but not comfort care. A rapid was called today as his SpO2 was in the low 80's, RT worked with nursing and he is now on high flow 15L and a non-rebreather mask at 15L. he is sating in the high 80's to low 90's. His HR was also up into the 130's so a Cardizem gtt has been ordered.
[2022-04-21] MEDS ORDERED: furosemide 20 MG/2 ML vial IV SCH (20:00)
[2022-04-21] MEDS: furosemide 40mg/4ml inj IV SCH (20:00)
--- NOTE | 2022-04-21 22:17 | NUR ---
Patient resistive to care, only wants to lay on right side. Is not diligent with keeping oxygen on and is refusing blood draws. Is incontinent of urine, does not bother with urinal anymore. I will request a Castro
--- NOTE | 2022-04-21 22:24 | NUR ---
Per Dr. Favian watters to place Castro Cath.
[2022-04-22] VITALS (11 sets, daily range): BP systolic 75–107; BP diastolic 49–75
--- NOTE | 2022-04-22 00:09 | NUR ---
Patient's son cld and he gave me permission to talk with him about his medical condition. I updated the son and he told me he is in the [place] and is going to try to come home. He took the hospital phone number and advised me the [facility] will be calling as that is the route he goes through to take leave.
[2022-04-22] MEDS: morphine 2 MG/ML inj. syringe IV PRN ×3 (04:04→16:41)
--- NOTE | 2022-04-22 06:39 | NUR ---
Problems reprioritized. Patient report given, questions answered & plan of care reviewed with DELICIA Watts.
--- NOTE | 2022-04-22 07:50 | NUR ---
"MORNING, DR. NOBLE, JULY WE HAVE AN ORDR FOR PICC LINE FOR PT YUNG, ROOM 3012 C, PLEASE. HIS ARMS VERY SWOLLEN. THANK YOU WILMA VELÁZQUEZ"
[2022-04-22] MEDS: LACTOSE-REDUCED FOOD 237ML LIQUID PO SCH ×3 (08:00→18:05)
[2022-04-22] MEDS: furosemide 40mg/4ml inj IV SCH ×2 (08:00→20:15)
[2022-04-22] MEDS: CefTRIAXone 2gm/D5W 50ml BAG 50 ML IV SCH (08:00)
[2022-04-22] MEDS: K and/or MAG REPLACEMENT MC SCH ×2 (08:00→18:27)
--- NOTE | 2022-04-22 08:07 | NUR ---
"ANDERS DOCKERY BP HAS BEEN CONSISTENTLY LOW IN HIGH 70'S. DO YOU WANT TO CONTINUE PARK CHASE? THANK YOU"
[2022-04-22 09:27] LABS: BASOPHILS % (AUTO) 0.1 % (0-1); EOSINOPHILS % (AUTO) 0.2 % (0-6); HEMOGLOBIN 11.8 g/dl (14.0-17.9); LYMPHOCYTES # (AUTO) 1.1 X10'3 (1.1-4.8); LYMPHOCYTES % (AUTO) 8.4 % (21-51); MEAN CORPUSCULAR VOLUME 90.8 FL (78-98); MEAN PLATELET VOLUME 7.4 FL (7.4-10.4); MONOCYTES # (AUTO) 0.8 X10'3 (0-0.9); MONOCYTES % (AUTO) 6.3 % (2-12); NEUTROPHILS # (AUTO) 10.7 X10'3 (1.8-7.7); PLATELET COUNT 160 X10'3 (140-440); RED BLOOD COUNT 4.07 X10'6 (4.70-6.10); RED CELL DISTRIBUTION WIDTH 20.8 % (11.5-14.5); WHITE BLOOD COUNT 12.6 X10'3 (4.5-11.0)
[2022-04-22 09:38] LABS: ALANINE AMINOTRANSFERASE 25 U/L (12-78); ALBUMIN 1.4 G/DL (3.4-5.0); ALBUMIN/GLOBULIN RATIO 0.5 (1.1-1.5); ALKALINE PHOSPHATASE 122 IU/L (46-116); ANION GAP 10 (8-16); ASPARTATE AMINO TRANSFERASE 47 U/L (10-37); BILIRUBIN,TOTAL 0.6 MG/DL (0.1-1.0); BLOOD UREA NITROGEN 31 MG/DL (7-18); BUN/CREATININE RATIO 40.3 (5.4-32.0); CALCIUM 8.9 MG/DL (8.5-10.1); CHLORIDE 103 MMOL/L (99-107); CREATININE 0.77 MG/DL (0.60-1.10); GLUCOSE 166 MG/DL (70-104); MAGNESIUM 2.1 MG/DL (1.5-2.4); PHOSPHORUS 3.5 MG/DL (2.3-4.5); SODIUM 134 MMOL/L (135-145); TOTAL CARBON DIOXIDE 20.9 MMOL/L (24-32); TOTAL PROTEIN 4.3 G/DL (6.4-8.2); eGFR > 90 ML/MIN
--- NOTE | 2022-04-22 10:03 | NUR ---
"DR. NOBLE, WE NEED AN ORDER FOR MIDLINE FOR PT AGA, ROOM 3012 C SO WE CAN DRAW LABS FROM IT. HIS ARMS VERY SWOLLEN AND UNABLE TO DRAW. PICC LINE NURSE HERE AND WAITING FOR ORDER. THANK YOU MEREDITH VELÁZQUEZU"
[2022-04-22] MEDS: azithromycin/NS 500mg/250ml 250 ML IV SCH (10:58)
[2022-04-22] MEDS: heparin, porcine 5000 units/ml vial SQ SCH ×2 (10:59→20:15)
--- NOTE | 2022-04-22 11:47 | NUR ---
PAGE TO PICC TEAM: "DR. NOBLE ORDERED A MIDLINE FOR PT AGA, ROOM 3012C. THANK YOU MELANIA PCU"
--- NOTE | 2022-04-22 13:21 | NUR ---
"DR. NOBLE, PT AGA ASKING TO ADD PAIN MEDS. HE HAS MORPHINE 1 MG Q 6HR AND TYLENOL 650MG BUT FOR FEVER ONLY. CAN WE ADD SOMETHING FOR HIS PAIN? THANK YOU WILMA VELÁZQUEZ"
[2022-04-22] MEDS: acetaminophen 325mg tablet PO PRN (13:57)
[2022-04-22] MEDS ORDERED: acetaminophen 325mg tablet PO PRN (15:00)
--- NOTE | 2022-04-22 15:01 | NUR ---
"CHEST XRAY ORDER FOR PT AGA, ROOM 3012 C, PLEASE. THANK YOU MEREDITH VELÁZQUEZU"
[2022-04-22] MEDS ORDERED: ipratropium/albuterol 3ml nebule NEB PRN (16:20)
[2022-04-22] MEDS ORDERED: methylPREDNISolone sod succ 125mg/2ml vial IV ONE (16:30)
--- NOTE | 2022-04-22 16:33 | NUR ---
DR. NOBLE DISCUSSED WITH PATIENT THE CODE STATUS. PATIENT VERBALIZED/CONFIRMED THAT HE WANTS TO REMAIN ON DNR STATUS AND DOESN'T WANT TO BE RESUSCITATED OR INTUBATED BECAUSE "IT WILL MAKE ME MORE MISERABLE".
[2022-04-22] MEDS: piperacillin/tazo 3.375gm/50ml 50 ML IV SCH (17:16)
[2022-04-22 17:44] LABS: BFSOURCE PLEURAL FLD
[2022-04-22 18:10] LABS: GLUCOSE,BODY FLUID 173 MG/DL; LDH,BODY FLUID 134 U/L
[2022-04-22 18:35] LABS: TOTAL PROTEIN,BODY FLUID < 2.0 G/DL
[2022-04-22 19:23] LABS: BFAPPEAR CLOUDY; BFCOLOR YELLOW
[2022-04-22 19:24] LABS: BF RBC COUNT 3965 /CU MM; BF WBC COUNT 295 /CU MM (0-1000); BFVOLUME 60 ML; NEUTROPHILS,BODY FLUID 4 %
[2022-04-22 19:25] LABS: LYMPHOCYTES,BODY FLUID 55 %; MONOCYTES,BODY FLUID 41 %
[2022-04-22] MEDS: ipratropium/albuterol 3ml nebule NEB SCH ×2 (19:41→22:29)
[2022-04-22] MEDS: methylPREDNISolone sod succ 125mg/2ml vial IV SCH (20:15)
[2022-04-22] MEDS: HYDROcodone/acetaminophen 5mg/325mg tablet PO PRN (22:02)
[2022-04-23] MEDS: piperacillin/tazo 3.375gm/50ml 50 ML IV SCH ×3 (00:46→16:00)
[2022-04-23 01:57] VITALS: BP 101/64
--- NOTE | 2022-04-23 02:21 | NUR ---
jessica NELSON: Salo Cagle 3012-C. HR sustaining 160-170s, BP 90-106/50-60. Diltiazem gtt DC'd during dayshift. Would you like to restart gtt or give IVP? Imani RN ext [phone]. Orders received.
[2022-04-23] MEDS ORDERED: diltiazem 30mg tablet PO ONE ×2 (02:25→22:30)
[2022-04-23] MEDS: ipratropium/albuterol 3ml nebule NEB SCH ×2 (02:36→07:00)
[2022-04-23] MEDS: morphine 2 MG/ML inj. syringe IV PRN ×2 (02:41→15:06)
[2022-04-23] MEDS: methylPREDNISolone sod succ 125mg/2ml vial IV SCH ×4 (02:42→20:22)
[2022-04-23 07:00] VITALS: BP 98/53
[2022-04-23] MEDS: furosemide 40mg/4ml inj IV SCH ×2 (07:29→20:24)
[2022-04-23] MEDS: azithromycin/NS 500mg/250ml 250 ML IV SCH (07:31)
[2022-04-23] MEDS: heparin, porcine 5000 units/ml vial SQ SCH ×2 (07:32→20:23)
[2022-04-23] MEDS: HYDROcodone/acetaminophen 5mg/325mg tablet PO PRN ×2 (07:33→18:49)
[2022-04-23] MEDS: K and/or MAG REPLACEMENT MC SCH ×2 (07:34→20:00)
[2022-04-23] MEDS: LACTOSE-REDUCED FOOD 237ML LIQUID PO SCH ×3 (07:35→18:02)
[2022-04-23] MEDS ORDERED: iohexol 350MG/ML 100ml bottle IV ONE (08:24)
--- NOTE | 2022-04-23 09:31 | NUR ---
F/u 04/23: Pt PO 0% mostly this admit refusing all Ensure Plus High Protein ONS also not very compliant declining procedures only wants to be comfortable now DNR/DNI s/p rapid response yesterday per EMR. Pt continues to be malnourished though limited nutrition interventions at this time given above. SKYE paged MD regarding cancelling ONS if agreeable since pt refusing all of them. LBM 04/22 small/smears since admit w/ poor PO intake. Will continue to follow. Rec: 1. continue regular diet; encourage PO 2. vanilla/strawberry Ensure Plus High Protein TIDWM; d/c in EMR if MD agreeable as pt refusing all 3. routine bowel care 4. weekly wts 5. monitor for changes in code status Addendum: 04/23/22 at [address] Amended: Links added.
[2022-04-23] MEDS: levalbuterol 0.63mg/3ml nebule IH SCH ×3 (11:30→20:13)
[2022-04-23 13:00] VITALS: BP 93/63
[2022-04-23 14:07] LABS: BASOPHILS # (AUTO) 0.1 X10'3 (0-0.2); BASOPHILS % (AUTO) 0.7 % (0-1); EOSINOPHILS % (AUTO) 0 % (0-6); HEMATOCRIT 34.9 % (42.0-52.0); HEMOGLOBIN 11.6 g/dl (14.0-17.9); LYMPHOCYTES # (AUTO) 0.8 X10'3 (1.1-4.8); MEAN CORPUSCULAR HEMOGLOBIN 29.4 PG (27.0-31.0); MEAN CORPUSCULAR HGB CONC 33.2 g/dL (33.0-36.5); MEAN CORPUSCULAR VOLUME 88.5 FL (78-98); MEAN PLATELET VOLUME 7.7 FL (7.4-10.4); MONOCYTES # (AUTO) 0.5 X10'3 (0-0.9); MONOCYTES % (AUTO) 4.2 % (2-12); NEUTROPHILS # (AUTO) 10.2 X10'3 (1.8-7.7); NEUTROPHILS % (AUTO) 88.1 % (42-75); PLATELET COUNT 211 X10'3 (140-440); RED BLOOD COUNT 3.95 X10'6 (4.70-6.10); RED CELL DISTRIBUTION WIDTH 20.6 % (11.5-14.5); WHITE BLOOD COUNT 11.5 X10'3 (4.5-11.0)
[2022-04-23 14:14] LABS: ALANINE AMINOTRANSFERASE 28 U/L (12-78); ALBUMIN 1.5 G/DL (3.4-5.0); ALBUMIN/GLOBULIN RATIO 0.6 (1.1-1.5); ALKALINE PHOSPHATASE 123 IU/L (46-116); ANION GAP 6 (8-16); ASPARTATE AMINO TRANSFERASE 45 U/L (10-37); BILIRUBIN,TOTAL 0.6 MG/DL (0.1-1.0); BLOOD UREA NITROGEN 39 MG/DL (7-18); BUN/CREATININE RATIO 44.3 (5.4-32.0); CALCIUM 9.1 MG/DL (8.5-10.1); CHLORIDE 101 MMOL/L (99-107); CREATININE 0.88 MG/DL (0.60-1.10); GLUCOSE 223 MG/DL (70-104); MAGNESIUM 2.2 MG/DL (1.5-2.4); POTASSIUM 3.9 MMOL/L (3.5-5.1); SODIUM 133 MMOL/L (135-145); TOTAL CARBON DIOXIDE 26.3 MMOL/L (24-32); TOTAL PROTEIN 4.2 G/DL (6.4-8.2); eGFR 87 ML/MIN
[2022-04-23] MEDS ORDERED: levalbuterol 0.63mg/3ml nebule IH SCH (15:00)
[2022-04-23 22:00] VITALS: BP 89/55
[2022-04-23 22:56] VITALS: BP 97/70
[2022-04-23 23:58] VITALS: BP 92/64
[2022-04-24] VITALS (10 sets, daily range): BP systolic 80–103; BP diastolic 46–69
[2022-04-24] MEDS: piperacillin/tazo 3.375gm/50ml 50 ML IV SCH ×2 (00:53→07:47)
[2022-04-24] MEDS: methylPREDNISolone sod succ 125mg/2ml vial IV SCH ×2 (01:35→07:38)
[2022-04-24] MEDS: levalbuterol 0.63mg/3ml nebule IH SCH ×2 (03:16→08:48)
[2022-04-24 06:21] LABS: BASOPHILS % (AUTO) 0.2 % (0-1); EOSINOPHILS % (AUTO) 0 % (0-6); HEMATOCRIT 34.6 % (42.0-52.0); HEMOGLOBIN 11.5 g/dl (14.0-17.9); LYMPHOCYTES # (AUTO) 0.6 X10'3 (1.1-4.8); LYMPHOCYTES % (AUTO) 4.3 % (21-51); MEAN CORPUSCULAR HEMOGLOBIN 29.2 PG (27.0-31.0); MEAN CORPUSCULAR HGB CONC 33.4 g/dL (33.0-36.5); MEAN CORPUSCULAR VOLUME 87.6 FL (78-98); MEAN PLATELET VOLUME 7.3 FL (7.4-10.4); MONOCYTES # (AUTO) 0.6 X10'3 (0-0.9); MONOCYTES % (AUTO) 4.3 % (2-12); NEUTROPHILS # (AUTO) 13.7 X10'3 (1.8-7.7); NEUTROPHILS % (AUTO) 91.2 % (42-75); PLATELET COUNT 219 X10'3 (140-440); RED BLOOD COUNT 3.95 X10'6 (4.70-6.10); RED CELL DISTRIBUTION WIDTH 20.4 % (11.5-14.5)
--- NOTE | 2022-04-24 06:35 | NUR ---
I received report from DELICIA Parker. Pt did have low BP last night [id number]. Will continue to monitor.
[2022-04-24 06:41] LABS: ALANINE AMINOTRANSFERASE 32 U/L (12-78); ALBUMIN 1.6 G/DL (3.4-5.0); ALBUMIN/GLOBULIN RATIO 0.6 (1.1-1.5); ALKALINE PHOSPHATASE 133 IU/L (46-116); ANION GAP 7 (8-16); ASPARTATE AMINO TRANSFERASE 41 U/L (10-37); BILIRUBIN,TOTAL 0.7 MG/DL (0.1-1.0); BLOOD UREA NITROGEN 43 MG/DL (7-18); BUN/CREATININE RATIO 46.7 (5.4-32.0); CALCIUM 9.1 MG/DL (8.5-10.1); CHLORIDE 97 MMOL/L (99-107); CREATININE 0.92 MG/DL (0.60-1.10); GLUCOSE 290 MG/DL (70-104); MAGNESIUM 2.2 MG/DL (1.5-2.4); POTASSIUM 3.7 MMOL/L (3.5-5.1); SODIUM 130 MMOL/L (135-145); TOTAL CARBON DIOXIDE 25.7 MMOL/L (24-32); TOTAL PROTEIN 4.4 G/DL (6.4-8.2); eGFR 83 ML/MIN
[2022-04-24 07:26] LABS: ANISOCYTOSIS 3+; PLATELET ESTIMATE NORMAL; SCHISTOCYTES FEW
[2022-04-24] MEDS: morphine 2 MG/ML inj. syringe IV PRN ×2 (07:36→13:31)
[2022-04-24] MEDS: heparin, porcine 5000 units/ml vial SQ SCH (07:43)
[2022-04-24] MEDS: furosemide 40mg/4ml inj IV SCH (07:43)
[2022-04-24] MEDS: azithromycin/NS 500mg/250ml 250 ML IV SCH (07:47)
[2022-04-24] MEDS: K and/or MAG REPLACEMENT MC SCH (07:48)
[2022-04-24] MEDS: LACTOSE-REDUCED FOOD 237ML LIQUID PO SCH ×4 (07:50→13:35)
--- NOTE | 2022-04-24 10:10 | NUR ---
MR Cagle was sustained 170's with BP of 82/63 MD leong. Rapid called, I started a boils 250, per rapid order. Pt currently 80/46 with hr of 159. Will continue to monitor
[2022-04-24] MEDS ORDERED: albumin (Human) 5% 250ml 250 ML IV ONE ×2 (11:10→12:25)
[2022-04-24] MEDS: HYDROcodone/acetaminophen 5mg/325mg tablet PO PRN (15:11)
--- NOTE | 2022-04-24 15:52 | NUR ---
Paged Dr Tripp Message: [phone]. Cagle. Family and patient ready for comfort care orders. Thanks [phone] Transaction number: [id number]
[2022-04-24] MEDS ORDERED: morphine ORAL 5MG/0.25 ML (Conc. morphine) oral syringe PO PRN (16:40)
[2022-04-24] MEDS: HYDROmorphone 1 mg/ml syringe IV PRN ×2 (18:35→23:57)
[2022-04-25] MEDS: HYDROmorphone 1 mg/ml syringe IV PRN ×5 (04:53→21:15)
--- NOTE | 2022-04-25 08:29 | NUR ---
Faxed req to dietary for [employer]
--- NOTE | 2022-04-25 15:09 | NUR ---
Family states pt pants are missing (blue jeans) with car keys. This RN went to 12C (old room), no pants, lost and found empty. Called Housekeeping: no pants. Called ED: no pants.
[2022-04-25] MEDS: morphine 10mg/0.5ml (conc. morphine) oral syringe PO PRN ×2 (19:07→23:21)
[2022-04-26] MEDS: HYDROmorphone 1 mg/ml syringe IV PRN ×5 (01:27→20:27)
[2022-04-26] MEDS: morphine 10mg/0.5ml (conc. morphine) oral syringe PO PRN ×4 (03:24→17:24)
--- NOTE | 2022-04-26 10:34 | NUR ---
F/u 04/26: Pt now MORALES w/ comfort care per EMR. LBM 04/23. Will continue to follow. Rec: 1. continue regular diet per MD; honor pt food preferences 2. bowel care per comfort measures Addendum: 04/26/22 at [address] Amended: Links added.
[2022-04-26] MEDS: LORazepam 2 mg/ml vial IV PRN (11:16)
[2022-04-26 18:00] VITALS: BP 105/65
[2022-04-27] MEDS: HYDROmorphone 1 mg/ml syringe IV PRN ×5 (00:27→21:52)
[2022-04-27] MEDS: morphine 10mg/0.5ml (conc. morphine) oral syringe PO PRN ×4 (03:05→19:47)
[2022-04-27] MEDS: LORazepam 2 mg/ml vial IV PRN ×3 (04:03→22:47)
--- NOTE | 2022-04-27 06:31 | NUR ---
Patient in room PCU 3021. I have received report from Manda NESBITT and had the opportunity to ask questions and assume patient care.
--- NOTE | 2022-04-27 15:00 | NUR ---
FREDERICK II documentation: I have reviewed and agree with all interventions, assessments performed and documented by FREDERICK Allison II.
--- NOTE | 2022-04-27 18:21 | NUR ---
Problems reprioritized. Patient report given, questions answered & plan of care reviewed with Eda NESBITT.
--- NOTE | 2022-04-27 18:28 | NUR ---
Patient in room PCU 3021. I have received report from DELICIA LUIS and had the opportunity to ask questions and assume patient care.
[2022-04-27 22:00] VITALS: BP 91/56
[2022-04-28] MEDS: morphine 10mg/0.5ml (conc. morphine) oral syringe PO PRN ×5 (01:38→22:05)
[2022-04-28] MEDS: HYDROmorphone 1 mg/ml syringe IV PRN ×4 (03:40→19:46)
--- NOTE | 2022-04-28 06:18 | NUR ---
Problems reprioritized. Patient report given, questions answered & plan of care reviewed with DELICIA MAR.
--- NOTE | 2022-04-28 06:30 | NUR ---
Pt family has refused AM VS. Will check again later.
--- NOTE | 2022-04-28 11:00 | NUR ---
Family is still refusing VS, will try again later.
[2022-04-28] MEDS: LORazepam 2 mg/ml vial IV PRN ×2 (11:16→22:07)
--- NOTE | 2022-04-28 13:35 | NUR ---
PRESSURE ULCER EDUCATION: DEFINITION: A pressure ulcer is an area of skin that breaks down when you stay in one position too long. The constant pressure against the skin reduces the blood flow to that area and the affected tissue dies. CAUSES: "Being bedridden or in a wheelchair "Fragile skin "Having a chronic condition, such as diabetes or vascular disease "Inability to move certain parts of your body without assistance "Older age "Incontinence of urine or stool SYMPTOMS: "A reddened area that DOES NOT turn white when pressed on - this can be the beginning of a pressure ulcer "A blister, deep sore or a crater - these can be advanced pressure ulcers FIRST AID: "Relieve the pressure on this area "Keep the area clean and dry "Call your primary doctor if you see any of the above symptoms "DO NOT massage the area "DO NOT use a donut shaped or ring shaped pillow- these actually interfere with the blood flow and cause complications PREVENTION: "Check for pressure ulcers everyday "Change position at least every two hours to relieve pressure "Use items that help relieve pressure- pillows, sheepskin, foam padding, and powders. "Keep skin clean and dry "Eat healthy well balanced meals "Exercise daily IF YOU SEE ANY OF THESE SYMPTOMS WHILE IN THE HOSPITAL - TELL YOUR NURSE IMMEDIATELY. IF YOU SEE ANY OF THESE SYMPTOMS WHILE AT HOME OR HAVE ANY QUESTIONS OR CONCERNS ABOUT PRESSURE ULCERS - CALL YOUR PRIMARY DOCTOR IMMEDIATELY. Addendum: 04/28/22 at 1336 by Raquel Tuttle RN Amended: Links added.
[2022-04-28 14:59] VITALS: BP 87/53
[2022-04-29] MEDS: HYDROmorphone 1 mg/ml syringe IV PRN ×5 (00:18→22:59)
[2022-04-29] MEDS: LORazepam 2 mg/ml vial IV PRN ×4 (01:40→16:52)
[2022-04-29] MEDS: morphine 10mg/0.5ml (conc. morphine) oral syringe PO PRN ×3 (07:13→20:16)
--- NOTE | 2022-04-29 18:05 | NUR ---
Patient in room PCU 3021. I have received report from Latoya NESBITT and had the opportunity to ask questions and assume patient care. Pt is laying semi fowlers in bed. Pt on RA. No s/s of pain. No s/s of distress. Family at bedside. BLL, cqll light within reach, frequently used items in reach, frequent rounding, grocery stock clerk socks on. Will continue to monitor.
[2022-04-30] MEDS: LORazepam 2 mg/ml vial IV PRN ×3 (02:29→20:07)
[2022-04-30] MEDS: HYDROmorphone 1 mg/ml syringe IV PRN ×4 (03:47→22:38)
[2022-04-30] MEDS: morphine 10mg/0.5ml (conc. morphine) oral syringe PO PRN ×3 (07:36→16:26)
--- NOTE | 2022-04-30 18:32 | NUR ---
Patient in room PCU 3021. I have received report from Meri MACK and had the opportunity to ask questions and assume patient care.
[2022-05-01] MEDS: HYDROmorphone 1 mg/ml syringe IV PRN ×3 (02:58→15:04)
[2022-05-01] MEDS: LORazepam 2 mg/ml vial IV PRN ×2 (05:32→21:53)
--- NOTE | 2022-05-01 06:21 | NUR ---
Problems reprioritized. Patient report given, questions answered & plan of care reviewed with Tra RN.
--- NOTE | 2022-05-01 06:52 | NUR ---
Agree with Bee LIBRARY SERVICES COORDINATOR assessment except where I documented my findings.
[2022-05-01] MEDS: morphine 10mg/0.5ml (conc. morphine) oral syringe PO PRN ×6 (08:18→21:37)
--- NOTE | 2022-05-01 10:20 | NUR ---
Received report from DIGITAL SALES DIRECTOR, Omid
[2022-05-01] MEDS ORDERED: morphine 10mg/0.5ml (conc. morphine) oral syringe PO PRN (13:10)
--- NOTE | 2022-05-01 18:40 | NUR ---
Problems reprioritized. Patient report given, questions answered & plan of care reviewed with DELICIA Johnson.
[2022-05-02] MEDS: morphine 10mg/0.5ml (conc. morphine) oral syringe PO PRN ×2 (02:47→05:01)
[2022-05-02] MEDS: LORazepam 2 mg/ml vial IV PRN ×3 (02:47→12:40)
--- NOTE | 2022-05-02 06:35 | NUR ---
Problems reprioritized. Patient report given, questions answered & plan of care reviewed with DELICIA Duncan.
[2022-05-02] MEDS: HYDROmorphone 1 mg/ml syringe IV PRN ×4 (06:57→20:47)
--- NOTE | 2022-05-02 07:27 | NUR ---
Patient in room JONE 352. I have received report from Elizabeth NESBITT and had the opportunity to ask questions and assume patient care.
[2022-05-02] MEDS: morphine 10mg/0.5ml (conc. morphine) oral syringe PO SCH ×5 (15:23→23:15)
--- NOTE | 2022-05-02 18:16 | NUR ---
Problems reprioritized. Patient report given, questions answered & plan of care reviewed with Carley NESBITT.
--- NOTE | 2022-05-02 18:59 | NUR ---
Patient in room JONE 352. I have received report from Perla NESBITT and had the opportunity to ask questions and assume patient care.
[2022-05-03] MEDS: morphine 10mg/0.5ml (conc. morphine) oral syringe PO SCH ×14 (01:03→23:49)
[2022-05-03] MEDS: HYDROmorphone 1 mg/ml syringe IV PRN ×6 (01:28→22:39)
--- NOTE | 2022-05-03 01:49 | NUR ---
patient medicated 1-2hrly see emar still restless present in room. Dr abraham paged with regards ativan dosage. awaiting call back
[2022-05-03] MEDS: LORazepam 2 mg/ml vial IV PRN ×4 (02:08→22:34)
--- NOTE | 2022-05-03 03:04 | NUR ---
Ativan remains q 1 hrly no change. patient appears restless and moaning, ex appears concerned asking often for pain relief or ativan for patient. will medicate as per EMAR with IV Dilaudid and ativan IV as patient appears to have difficulty swallowing roxenol . will continue to monitor. Repositioned on side and suctioned as needed.
[2022-05-03] MEDS ORDERED: scopolamine 1.5mg patch.TD72 (72-hour patch) TD SCH (04:35)
--- NOTE | 2022-05-03 05:02 | NUR ---
scopolamine patch placed behind left ear for secretions per Dr abraham
--- NOTE | 2022-05-03 05:53 | NUR ---
Problems reprioritized. Patient report given, questions answered & plan of care reviewed with Perla NESBITT.
--- NOTE | 2022-05-03 07:00 | NUR ---
x- says patient is comfortable and does not want 0700 dose of roxinol given. Pt is obtunded and appears comfortable at this time.
--- NOTE | 2022-05-03 07:03 | NUR ---
Patient in room JONE 352. I have received report from Carley NESBITT and had the opportunity to ask questions and assume patient care.
--- NOTE | 2022-05-03 11:00 | NUR ---
0700 and 1100 refused by family member (ex-).
--- NOTE | 2022-05-03 13:02 | NUR ---
Patient is obtunded and has not refused medication, it is x- who is refusing Roxanol for patient and is opinionated that patient only receive iv medicaitons at this point. X- was not in room when Dr Tripp rounded, but son Dawood was in room. Dr Tripp would like the x- re-educated on importance of roxinol when she returns. I have spoken with her this AM and explained that it is not a medication that is swallowed, but absorbed through the tissues in the cheek. Pt needed quite a bit of education on this medication and it was clairified this AM. I will speak to her again when she gets back. Perla NESBITT, non-admin reason was noted wrong, for correction it is fully because family (x-) is refusing. it not patient.
--- NOTE | 2022-05-03 19:00 | NUR ---
Patient in room JONE 352. I have received report from Perla NESBITT and had the opportunity to ask questions and assume patient care.
--- NOTE | 2022-05-03 19:04 | NUR ---
Problems reprioritized. Patient report given, questions answered & plan of care reviewed with Keyana.
--- NOTE | 2022-05-03 20:00 | NUR ---
No VS taken per family request/MD order.
--- NOTE | 2022-05-03 20:48 | NUR ---
PT HAS BEEN MEDICATED BY RN AND IS RESTING, sIG OTHER AT BEDSIDE. KAM ROUNDDESI. wATER GIVEN TO VISITOR PER REQUEST. SIG OTHER CALM AT THIS TIME, WAS ANGRY EARLIER. Addendum: 05/03/22 at 2053 by Frannie Salcedo RN Amended: Links added.
[2022-05-04] MEDS: morphine 10mg/0.5ml (conc. morphine) oral syringe PO SCH ×3 (01:39→05:19)
--- NOTE | 2022-05-04 06:00 | NUR ---
Patient had regular scheduled roxanol thru out shift for comfort care management. At around 0520, another RN came to this nurse after administering a dose of scheduled roxanol informing that she believed patient had . monitoring specialist set up and no QRS wave captured. No heart/lungs sounds auscultated, and no VS obtained (per ex-). Patient's ex- also stated that she would inform his son(Luis E Cagle) and his brother. This nurse then called [facility] and spoke to a Concha Arthur As unknown if patient had previously injected meth, pt. could not be considered to be a candidate. Ref # [id number]. Called [facility] in [place] for ex- Ros, and they stated they would be here within the hour. Addendum: 05/04/22 at 0703 by Keyana Irizarry RN Luis E Cagle [phone]
--- NOTE | 2022-05-04 06:44 | NUR ---
RN IS TO DOCUMENT YES TO ALL APPLICABLE AREAS Pronouncement of : 1. Time Physician Notified: 544 2. Date of : 05/04/22 3. Time of : 529 4. DNR/Withdraw life support documented:Yes 5. Monitor strip has been placed on chart:Yes 6. Assessment process is of one-minute duration and includes following criteria: a) Patient is unresponsive to all stimuli: Yes b) Pupils fixed and non-reactive:Yes c) Auscultation of precordium reveals absence of heart tones:Yes d) Auscultation of lungs reveals absence of breath sounds:Yes e) Absence of blood pressure / all vital signs:Yes f) QRS complexes are not present on monitor / EKG strip:Yes g) Pacer spikes without capture:N/A 4. Comments: Ex - Ros at bedside.
--- NOTE | 2022-05-04 06:50 | NUR ---
Patient in room JONE 352. I have received report from Keyana NESBITT and had the opportunity to ask questions and assume patient care. Ashkan passed at 0530
--- NOTE | 2022-05-04 06:50 | NUR ---
Problems reprioritized. Patient report given, questions answered & plan of care reviewed with Perla NESBITT.
--- NOTE | 2022-05-04 07:13 | NUR ---
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
== END 2022-05-04 07:07 | DRG 681 ==
LOC: ER 06:02 → ED HOLD 12:18 → PCU 3S 14:05 → SUR 3N 05-01 10:50
PROVIDERS: ADMIT Internal Medicine; ATTEND Internal Medicine
PROC: 07B53ZX Excision of Right Axillary Lymphatic, Percutaneous Approach, Diagnostic (ICD-10-PCS; 2022-04-17)
PROC: 0W993ZX Drainage of Right Pleural Cavity, Percutaneous Approach, Diagnostic (ICD-10-PCS; 2022-04-17)
PROC: 5A0935A Assistance with Respiratory Ventilation, Less than 24 Consecutive Hours, High Flow/Velocity Cannula (ICD-10-PCS; principal; 2022-04-21)
PROC: B32T1ZZ Computerized Tomography (CT Scan) of Left Pulmonary Artery using Low Osmolar Contrast (ICD-10-PCS; 2022-04-21)
PROC: B3201ZZ Computerized Tomography (CT Scan) of Thoracic Aorta using Low Osmolar Contrast (ICD-10-PCS; 2022-04-21)
PROC: B32S1ZZ Computerized Tomography (CT Scan) of Right Pulmonary Artery using Low Osmolar Contrast (ICD-10-PCS; 2022-04-21)
PROC: 5A0935A Assistance with Respiratory Ventilation, Less than 24 Consecutive Hours, High Flow/Velocity Cannula (ICD-10-PCS; 2022-04-22)
PROC: 0W9930Z Drainage of Right Pleural Cavity with Drainage Device, Percutaneous Approach (ICD-10-PCS; 2022-04-22)
PROC: 5A0935A Assistance with Respiratory Ventilation, Less than 24 Consecutive Hours, High Flow/Velocity Cannula (ICD-10-PCS; 2022-04-23)
PROC: 5A0935A Assistance with Respiratory Ventilation, Less than 24 Consecutive Hours, High Flow/Velocity Cannula (ICD-10-PCS; 2022-04-24)
PROC: 5A09357 Assistance with Respiratory Ventilation, Less than 24 Consecutive Hours, Continuous Positive Airway Pressure (ICD-10-PCS; 2022-04-24)
DX: C83.04 Small cell B-cell lymphoma, lymph nodes of axilla and upper limb (principal); J96.21 Acute and chronic respiratory failure with hypoxia; J18.9 Pneumonia, unspecified organism; E46 Unspecified protein-calorie malnutrition; J91.8 Pleural effusion in other conditions classified elsewhere; E87.1 Hypo-osmolality and hyponatremia; E77.8 Other disorders of glycoprotein metabolism; E88.09 Other disorders of plasma-protein metabolism, not elsewhere classified; I50.9 Heart failure, unspecified; R16.2 Hepatomegaly with splenomegaly, not elsewhere classified; Z66 Do not resuscitate; Z51.5 Encounter for palliative care; Z20.822 Contact with and (suspected) exposure to COVID-19; I95.1 Orthostatic hypotension; R62.7 Adult failure to thrive; F12.90 Cannabis use, unspecified, uncomplicated; J44.0 Chronic obstructive pulmonary disease with (acute) lower respiratory infection; E87.6 Hypokalemia; F15.90 Other stimulant use, unspecified, uncomplicated; I46.9 Cardiac arrest, cause unspecified; R00.0 Tachycardia, unspecified; R59.1 Generalized enlarged lymph nodes; F17.200 Nicotine dependence, unspecified, uncomplicated; K80.20 Calculus of gallbladder without cholecystitis without obstruction; Z59.00 Homelessness unspecified; Z91.199 Patient's noncompliance with other medical treatment and regimen due to unspecified reason; Z68.24 Body mass index [BMI] 24.0-24.9, adult
CPT/HCPCS: 32555; 32557; 36410; 36415; 36600; 38505; 71045; 71260; 71275; 76942; 80048; 80053; 80305; 81001; 82803; 82945; 83615; 83735; 83880; 83986; 84100; 84145; 84157; 84443; 84484; 85008; 85018; 85025; 85379; 85651; 87070; 87081; 87088; 87502; 87503; 87811; 89051; 93005; 93306; 93970; 94640; 94760; 94799; 96361; 96374; 96375; 97161; 97530; 99285; A4421; A4615; A4620; A4624; A6212; A6213; A6250; A6258; A6449; C1751; C1769; G0378; J0456; J0696; J1170; J1644; J1940; J2060; J2270; J2405; J2543; J2930; J3411; J3490; J7030; J7040; J7050; J7614; P9045; Q9967